=== PATIENT | female | born 1965 | race Two or more races ===

== ENCOUNTER 2018-10-06 14:44 | Emergency (ER) | payer MEDICAID ==
[~2018-10-06] VITALS: Ht 171.4 cm; Wt 62.1 kg
--- NOTE | 2018-10-06 14:55 | NUR ---
ED Nurse Note: Patient brought in by ambulance from home due to dizziness, vomiting, sweating and headache since 1000 today. Reports no recent flu-like symptoms or illness. Patient lying on the right sided and unable to be on supine position due to increased dizziness. Emesis bag at bedside. Patient awake, alert, oriented x 4. Speak full sentences. Able to follow commands. Placed patient in gown and on biotech production specialist. SR without ectopy noted. Bed in lowest position.
[2018-10-06 14:58] VITALS: BP 165/72
[2018-10-06] MEDS ORDERED: Ketorolac 30mg Inj IV ONE (15:00)
[2018-10-06] MEDS ORDERED: Metoclopramide 10mg/2ml Inj IVP ONE (15:00)
[2018-10-06] MEDS ORDERED: DiphenhydrAMINE 50mg/ml Inj IVP ONE (15:00)
--- NOTE | 2018-10-06 15:05 | NUR ---
ED Nurse Note: Report given to TODD Garcia. Patient resting in bed. Dimmed the light as requested by patient.
--- NOTE | 2018-10-06 15:09 | Emergency Room Report ---
History of Present Illness General Chief Complaint: Dizziness Source: Patient, EMS Present Illness HPI The patient presents with dizziness as in the world spinning and vomiting. It' s worse when she stands up or lays on her back. When this began she broke out perspiration. She also complains about a headache. She will rate how severe it is. She feels some tingling around the front of her face and also in her hands and feet. She denies any tinnitus at this time but feels pressure in the front part of her face. She denies vomiting blood. She does not return to home and then moved her bowels and was vomiting. When she vomits she is incontinent of urine. She did not loss consciousness. She's had an MRI in the past she says was unremarkable. At time she's been treated with morphine in the past for this problem. She's had episodes like this in the past. They've not been as severe. She's been told that she either has vertigo or vasovagal. The patient was feeling well before this began. She's been told she is prediabetic and sometimes her blood pressures elevated but she's not taking any medication for that. She denies taking any medication on a regular basis. The patient does drink alcohol and was last taking a Tuesday. She denies smoking or other drugs. Several years ago she had ablation of a fibroid and has not had a period since. She's been feeling hot flashes recently but not as severe as what happened today. Allergies: Coded Allergies: No Known Allergies (Unverified , 10/06/18) Patient History Past Medical History: see triage record Social History: Reports: alcohol use; Denies: smoking, drug use Social History Narrative She rents rooms in her house Reviewed Nursing Documentation: PMH: Agreed; PSxH: Agreed Nursing Documentation-PMH Past Medical History: No Stated History Review of Systems All Other Systems: negative except mentioned in HPI Physical Exam Vital Signs Date Time Temp Pulse Resp B/P (MAP) Pulse Ox O2 Delivery O2 Flow Rate FiO2 10/06/18 14:33 79 16 158/94 (115) 98 Room Air Sp02 EP Interpretation: reviewed, normal General Appearance: well appearing, no apparent distress, GCS 15, other - Laying on her side Head: normocephalic Eyes: bilateral eye normal inspection, bilateral eye PERRL, bilateral eye abnormal EOM - Nystagmus ENT: moist mucus membranes Neck: supple Respiratory: lungs clear, normal breath sounds Cardiovascular #1: regular rate, rhythm Cardiovascular #2: 2+ radial (R) Gastrointestinal: normal inspection, normal bowel sounds, non tender, no mass, non-distended Musculoskeletal: back normal, normal range of motion Neurologic: alert, oriented x3, cosmetic maker III-XII nml as tested - except for nystagmus, motor strength/tone normal, DTRs symmetric - Brisk, sensory intact, nystagmus Psychiatric: depressed affect Reflexes: 2+ knee (R), 2+ knee (L), 2+ ankle (R), 2+ ankle (L) Skin: normal inspection, warm/dry Medical Decision Making Diagnostic Impression: Primary Impression: Nystagmus Additional Impressions: Vomiting Qualified Codes: R11.2 - Nausea with vomiting, unspecified Headache Qualified Codes: R51 - Headache ER Course Patient presents with vertigo headache and vomiting. Differential includes labyrinthitis, positional vertigo, electrolyte imbalance, brain bleed amongst others. The fact that she's had this happen before and had an MRI it's been normal somewhat against this being a bleed. Evaluation will be with EKG and labs. The patient will be treated with Reglan, Benadryl and Toradol. Imaging may be ordered if her neurologic symptoms do not improve. EKG without injury. Normal WBC but left shift. Labs with glucose 133, slightly low sodium. Ketones in urine. Still with nystagmus. Will treat more aggressively and also CT indicated. 18: 05 CT normal. Unsteady on feet and still with nystagmus but no more nausea or vomiting. Transient hypotension, NS continuing. Patient needs MRI. Will admit observation telemetry. Aspirin given. Discussed with Dr. Mack. Transfer to [facility] Laboratory Tests Test 10/06/18 14:52 10/06/18 16:00 White Blood Count 10.1 K/UL (4.8-10.8) Red Blood Count 5.02 M/UL (4.20-5.40) Hemoglobin 15.0 G/DL (12.0-16.0) Hematocrit 45.2 % (37.0-47.0) Mean Corpuscular Volume 90 FL (80-99) Mean Corpuscular Hemoglobin 29.8 PG (27.0-31.0) Mean Corpuscular Hemoglobin Concent 33.1 G/DL (32.0-36.0) Red Cell Distribution Width 12.1 % (11.6-14.8) Platelet Count 223 K/UL (150-450) Mean Platelet Volume 7.4 FL (6.5-10.1) Neutrophils (%) (Auto) 90.3 % (45.0-75.0) H Lymphocytes (%) (Auto) 6.6 % (20.0-45.0) L Monocytes (%) (Auto) 2.4 % (1.0-10.0) Eosinophils (%) (Auto) 0.1 % (0.0-3.0) Basophils (%) (Auto) 0.6 % (0.0-2.0) Erythrocyte Sedimentation Rate 10 MM/HR (0-30) Prothrombin Time 10.7 SEC (9.30-11.50) Prothrombin Time INR 1.0 (0.9-1.1) PTT 26 SEC (23-33) Sodium Level 135 MMOL/L (136-145) L Potassium Level 3.6 MMOL/L (3.5-5.1) Chloride Level 101 MMOL/L (98-107) Carbon Dioxide Level 28 MMOL/L (21-32) Anion Gap 6 mmol/L (5-15) Blood Urea Nitrogen 11 mg/dL (7-18) Creatinine 0.5 MG/DL (0.55-1.30) L Estimate Glomerular Filtration Rate > 60 mL/min (>60) Glucose Level 133 MG/DL (74-106) H Calcium Level 8.8 MG/DL (8.5-10.1) Total Bilirubin 1.0 MG/DL (0.2-1.0) Aspartate Amino Transferase (AST) 27 U/L (15-37) Alanine Aminotransferase (ALT) 29 U/L (12-78) Alkaline Phosphatase 89 U/L (46-116) Total Creatine Kinase 166 U/L (26-308) Troponin I 0.000 ng/mL (0.000-0.056) Pro-B-Type Natriuretic Peptide 67 pg/mL (0-125) Total Protein 8.0 G/DL (6.4-8.2) Albumin 4.3 G/DL (3.4-5.0) Globulin 3.7 g/dL Albumin/Globulin Ratio 1.2 (1.0-2.7) Thyroid Stimulating Hormone (TSH) 2.194 uiU/mL (0.358-3.740) Serum Alcohol < 3 mg/dL Urine Color Pale yellow Urine Appearance Clear Urine pH 8 (4.5-8.0) Urine Specific [place] 1.015 (1.005-1.035) Urine Protein Negative (NEGATIVE) Urine Glucose (UA) Negative (NEGATIVE) Urine Ketones 2+ (NEGATIVE) H Urine Blood Negative (NEGATIVE) Urine Nitrite Negative (NEGATIVE) Urine Bilirubin Negative (NEGATIVE) Urine Urobilinogen Normal MG/DL (0.0-1.0) Urine Leukocyte Esterase Negative (NEGATIVE) Urine Opiates Screen Negative (NEGATIVE) Urine Barbiturates Screen Negative (NEGATIVE) Phencyclidine (PCP) Screen Negative (NEGATIVE) Urine Amphetamines Screen Negative (NEGATIVE) Urine Benzodiazepines Screen Negative (NEGATIVE) Urine Cocaine Screen Negative (NEGATIVE) Urine Marijuana (THC) Screen Negative (NEGATIVE) EKG Diagnostic Results Rate: normal Rhythm: NSR ST Segments: no acute changes Rhythm Strip Diag. Results EP Interpretation: yes Rhythm: NSR, no PVC's, no ectopy CT/MRI/US Diagnostic Results CT/MRI/US Diagnostic Results : Imaging Test Ordered: head Impression no intracranial pathology Last Vital Signs Date Time Temp Pulse Resp B/P (MAP) Pulse Ox O2 Delivery O2 Flow Rate FiO2 10/07/18 01:21 98.0 69 14 97/59 98 Room Air Status: improved Disposition: XFER [facility] Condition: Serious Referrals: [facility],REFERRING (PCP) Bert Ward MD Oct 06, 2018 15:09
--- NOTE | 2018-10-06 15:17 | NUR ---
ED Nurse Note:pain meds given iv
[2018-10-06 15:19] LABS: HEMATOCRIT 45.2 % (37.0-47.0); MEAN CORPUSCULAR VOLUME 90 FL (80-99); PLATELET COUNT 223 K/UL (150-450); RED BLOOD COUNT 5.02 M/UL (4.20-5.40); RED CELL DISTRIBUTION WIDTH 12.1 % (11.6-14.8); WHITE BLOOD COUNT 10.1 K/UL (4.8-10.8)
[2018-10-06 15:22] LABS: BASOPHILS % (AUTO) 0.6 % (0.0-2.0); EOSINOPHILS % (AUTO) 0.1 % (0.0-3.0); LYMPHOCYTES % (AUTO) 6.6 % (20.0-45.0); MONOCYTES % (AUTO) 2.4 % (1.0-10.0); NEUTROPHILS % (AUTO) 90.3 % (45.0-75.0)
[2018-10-06 15:42] LABS: ALANINE AMINOTRANSFERASE 29 U/L (12-78); ALBUMIN 4.3 G/DL (3.4-5.0); ALBUMIN/GLOBULIN RATIO 1.2 (1.0-2.7); ALKALINE PHOSPHATASE 89 U/L (46-116); ANION GAP 6 mmol/L (5-15); ASPARTATE AMINO TRANSFERASE 27 U/L (15-37); CALCIUM 8.8 MG/DL (8.5-10.1); CARBON DIOXIDE 28 MMOL/L (21-32); CHLORIDE 101 MMOL/L (98-107); CREATINE KINASE 166 U/L (26-308); CREATININE 0.5 MG/DL (0.55-1.30); POTASSIUM 3.6 MMOL/L (3.5-5.1); SODIUM 135 MMOL/L (136-145)
[2018-10-06 15:50] LABS: BLOOD UREA NITROGEN 11 mg/dL (7-18)
--- NOTE | 2018-10-06 16:02 | NUR ---
ED Nurse Note:urine sent to labs
[2018-10-06 16:15] VITALS: BP 119/71
[2018-10-06 16:24] LABS: BILIRUBIN, URINE NEGATIVE (NEGATIVE); COLOR,URINE PALE YELLOW; GLUCOSE, URINE (UA) NEGATIVE (NEGATIVE); KETONES,URINE 2+ (NEGATIVE); LEUKOCYTE ESTERASE ,URINE NEGATIVE (NEGATIVE); NITRITE,URINE NEGATIVE (NEGATIVE); PH,URINE 8 (4.5-8.0); PROTEIN,URINE NEGATIVE (NEGATIVE); UROBILINOGEN,URINE NORMAL MG/DL (0.0-1.0)
[2018-10-06 16:28] LABS: APPEARANCE,URINE CLEAR
[2018-10-06 18:00] VITALS: BP 117/76
[2018-10-06] MEDS ORDERED: LORazepam Inj 2mg/ml 1ml IV ONE (18:15)
--- NOTE | 2018-10-06 19:15 | NUR ---
ED Nurse Note: Patient sleeping, no s/s of acute distress. Patient vital signs within normal range
--- NOTE | 2018-10-06 19:25 | NUR ---
ED Nurse Note: Patient went down for CT.
--- NOTE | 2018-10-06 19:37 | NUR ---
ED Nurse Note: Patient returned from CT.
--- NOTE | 2018-10-06 19:48 | Diagnostic Imaging Report ---
EXAM: CT Head Without Intravenous Contrast CLINICAL HISTORY: DIZZY TECHNIQUE: Axial computed tomography images of the head/brain without intravenous contrast. CTDI is 70.38 mGy and DLP is 1516 mGy-cm. One or more of the following dose reduction techniques were used: automated exposure control, adjustment of the mA and/or kV according to patient size, use of iterative reconstruction technique. COMPARISON: No relevant prior studies available. FINDINGS: Brain: No hemorrhage. No edema. Ventricles: No ventriculomegaly. Bones/joints: No acute fracture. Soft tissues: Unremarkable. Sinuses: No acute sinusitis. Mastoid air cells: No mastoid effusion. IMPRESSION: No acute intracranial process.
[2018-10-06 20:02] VITALS: BP 104/58
--- NOTE | 2018-10-06 20:20 | NUR ---
ED Nurse Note: Patient requested food, sandwich provided. Patient tolerated meal well.
--- NOTE | 2018-10-06 21:20 | NUR ---
ED Nurse Note: Patient resting comfortably with at bedside, vital signs stable.
[2018-10-06 22:10] VITALS: BP 97/59
--- NOTE | 2018-10-06 22:21 | NUR ---
ED Nurse Note: Patient resting at this time in right lateral position. Patient has no complaints at this time, no family at bedside.
--- NOTE | 2018-10-06 22:48 | NUR ---
Face sheet, clinicals and EKG raxed to DEV @[phone] as requested.
--- NOTE | 2018-10-07 00:07 | NUR ---
ED Nurse Note: Called [facility] and rendered report to Melody BROOKS. Awaiting arrival of [facility].
--- NOTE | 2018-10-07 01:19 | NUR ---
ED Nurse Note: Patient is cleared for transfer to [facility], Report given to ALS. Patient vital signs stable.
[2018-10-07 01:21] VITALS: BP 97/59
== END 2018-10-07 01:26 | disposition short-term general hospital (02) ==
LOC: EDBD 14:44 → EMR 14:53
DX: H55.00 Unspecified nystagmus (principal); R11.2 Nausea with vomiting, unspecified; R51 Headache
CPT/HCPCS: 36415; 70450; 80053; 80307; 80329; 81003; 82550; 83880; 84443; 84484; 85025; 85610; 85651; 85730; 93005; 96361; 96374; 96375; 99285; J1200; J1885; J2405; J2765